=== PATIENT | female | born 1930 | race Caucasian/White ===

== ENCOUNTER → 2017-02-23 | Outpatient (CLI) | payer OTHER ==
[~2017-02-23] MED LIST: ACETYLCYST200 MG/1 M INH; AMLODIPINE BESYL5 MG PO; ASA5UEC PO; ASPIRIN325 PO; AUGMENTIN 875875 M1 PO; AVALIDE 300-121 EACH PO; B12INJ; BENICAR HCT 401 EACH PO; CALCIUM 500 +1 EAC5; CALCIUM 500 +1 EAC5 PO; COLACE 100 MG100 MG PO; COLACE100 MG PO; DUONEB 2.5-0.5 M3 ML IH; DUONEB 2.5-0.5 M3 ML INH; ENOXAPARIN30 MG/0.1 SUBQ; FIBERCON625 M1 PO; FISH OIL 1,0001 EAC5; FISH OIL 1,0001 EAC5 PO; FOSAMAX 70 MG T70 M1 PO; GLUCOSAMINE &1 EACH PO; HYDROCODON-ACET15 ML PO; IRBESARTAN150 MG PO; K-DUR 20 MEQ T20 MEQ PO; LASIX 20 MG TAB20 MG PO; LAXATIVE OF CHOICE; LEVAQUIN 500 M500 MG PO; LEVOTHYROXIN0.025 MG PO; LIDODERM 5%1 PATCH TP; LIPITOR10 MG PO; LORTAB 5 MG/5001 TA1 PO; LOSARTAN-HCTZ1 EAC2; MELATONIN1 MG PO; MUCINEX600 MG PO; OXYCODONE HCL5 M1 PO; PAIN & FEVER325 MG PO; PRAVACHOL40 MG PO; TOPROL XL50 MG PO; VITAMIN B-12100 MC1 PO; VITAMIN B-12500 MCG PO; VITAMIN D2000 UNIT PO; VITAMIN D400 UNI1 PO; ZOCOR 20 MG TAB20 M1 PO
--- NOTE | ~2017-02-23 | 2DMMODE ---
[facility] [place] [address] 2 D/M-MODE ECHOCARDIOGRAM Name: AMPAROGURUCHRISTOSRONIT MACIE Room #: [facility]#: [id number] Admission: 02/23/17 Attend Phys: Hunter Lee, Discharge: Date of : [birth year] Date of Service: 02/23/17 [facility] Report #: [id number] THIS REPORT FOR: //name// APPROVED REPORT Study performed: 02/23/2017 10:09:59 EXAM: Comprehensive 2D, Doppler, and color-flow Echocardiogram Patient Location: Out-Patient Blood Pressure: 130/86 mmHg HR: 63 bpm Other Information Study Quality: Adequate Indications Syncope CAD Hypertension/HDD 2D Dimensions RVDd: 30.59 mm LVEF(%): 66.60 (>50%) IVSd: 9.45 (7-11mm) LVOT Diam: 16.68 (18-24mm) LVDd: 39.93 mm PWd: 8.63 (7-11mm) Ascending Aorta: 26.92 mm LVDs: 25.43 (25-40mm) IVC: 14.00 mm Aortic Root: 27.25 mm Mcintyre's LVEF: 66.60 % Volumes Left Atrial Volume (Systole) Single Plane 4CH: 40.64 mL Single Plane 2CH: 31.58 mL LA ESV Index: 31.00 mL/m2 Aortic Valve AoV Peak Galen.: 1.79 m/s AO Peak Gr.: 12.77 mmHg LV Max P.60 mmHg LV Max: 1.07 m/s Mitral Valve E/A Ratio: 0.8 MV Decel. Time: 270.43 ms MV E Max Galen.: 0.89 m/s [facility] [address] [place] [address] 2 D/M-MODE ECHOCARDIOGRAM Name: RONIT GRAVES Room #: [facility]#: [id number] Admission: 02/23/17 Attend Phys: Hunter Lee, Discharge: Date of : [birth year] Date of Service: 02/23/17 1257 Report #: [id number] MV A Galen.: 1.14 m/s MV PHT: 78.42 ms Pulmonary Valve PV Peak Galen.: 0.80 m/s PV Peak Gr.: 2.56 mmHg Pulmonary Vein P Vein S: 55.7 m/s P Vein D: 50.6 m/s P Vein A Dur.: 27.9 m/s PVa Duration: 115 Tricuspid Valve TR Peak Galen.: 2.47 m/s RAP Estimate: 5.00 mmHg TR Peak Gr.: 24.40 mmHg Left Ventricle The left ventricle is normal size. There is normal LV segmental wall motion. There is normal left ventricular wall thickness. The left ventricular systolic function is normal. The left ventricular ejection fraction is within the normal range. LVEF is 60-65%. Grade I - abnormal relaxation pattern. Right Ventricle The right ventricle is normal size. The right ventricular systolic function is normal. Atria The left atrium size is normal. The right atrium size is normal. Aortic Valve Aortic valve is calcified, trileaflet. No aortic regurgitation is present. There is no aortic valvular stenosis. Mitral Valve Heavy mitral annular calcification, calcified posterior leaflet Mild mitral regurgitation. No evidence of mitral valve stenosis. Tricuspid Valve The tricuspid valve is normal in structure. There is mild tricuspid regurgitation. The right atrial pressure is estimated at 5 mmHg. There is no pulmonary hypertension. The estimated PAP was29 mmHg. Pulmonic Valve [facility] [address] [place] [address] 2 D/M-MODE ECHOCARDIOGRAM Name: RONIT GRAVES Room #: [facility] Nurys#: [id number] Admission: 02/23/17 Attend Phys: Hunter Lee, Discharge: Date of : [birth year] Date of Service: 02/23/17 1257 Report #: [id number] The pulmonary valve is normal in structure. There is no pulmonic valvular regurgitation. Great Vessels The aortic root is normal in size. IVC is normal in size and collapses >50% with inspiration. Pericardium There is no pericardial effusion. <Conclusion> The left ventricular systolic function is normal. There is normal LV segmental wall motion. LVEF 60-65%. Grade I diastolic dysfunction Aortic valve is calcified, trileaflet. No aortic regurgitation or stenosis present. Heavy mitral annular calcification, calcified posterior leaflet. Mild mitral regurgitation. Pulonary artery pressure could not be reliably ascertained. There is no pericardial effusion. <ELECTRONICALLY SIGNED> By: Abilio Perdomo MD, FACC 02/23/17 1257 1257 1257 Abilio Perdomo MD, FACC /INF
== END ==
LOC: CV 09:11
DX: R55 Syncope and collapse (principal); I25.10 Atherosclerotic heart disease of native coronary artery without angina pectoris; I10 Essential (primary) hypertension

== ENCOUNTER → 2017-03-27 | Outpatient (CLI) | payer OTHER | LOC: CAT 10:18 | DX: R91.1 Solitary pulmonary nodule (principal); J47.9 Bronchiectasis, uncomplicated; R05 Cough ==

== ENCOUNTER → 2017-07-04 | Outpatient (CLI) | payer OTHER | LOC: CAT 06-13 07:24 | DX: S12.100A Unspecified displaced fracture of second cervical vertebra, initial encounter for closed fracture (principal); M47.892 Other spondylosis, cervical region; M41.82 Other forms of scoliosis, cervical region; X58.XXXA Exposure to other specified factors, initial encounter; Y93.89 Activity, other specified; Y92.89 Other specified places as the place of occurrence of the external cause; Y99.8 Other external cause status ==

== ENCOUNTER 2017-11-30 15:23 | Inpatient (IN) | payer OTHER ==
[~2017-11-30] VITALS: Ht 149.9 cm; Wt 39.9 kg
--- NOTE | ~2017-11-30 | HC ---
[facility] [place] [address] CONSULTATION Name: RONIT GRAVES Room #: 435-P [facility] IN M.R.#: [id number] Admission: 11/30/17 Attend Phys: Cesar Muse MD Discharge: 12/06/17 Date of : [birth year] Report #: [id number] THIS REPORT FOR: //name// CC: Cesar Martinez MD DATE OF SERVICE: 11/30/2017 PULMONARY CONSULTATION REFERRING PROVIDER: Cesar Muse MD REASON FOR CONSULTATION: Influenza and hypoxemia. HISTORY OF PRESENT ILLNESS: Our group was asked to evaluate the patient in consultation while hospitalized in [facility]. She was admitted to [address] [place] [address]. We are seeing her there. The patient had been to Dr. Msue's office complaining of ongoing cough for several days, general malaise and fever, perhaps some diminished appetite. No nausea or vomiting. Normally sees Dr. Martinez in our group for bronchiectasis, but has not been seen since September. Subsequently was seen by Dr. Muse, looked poorly and an influenza swab was positive for influenza B. Subsequently, admitted for further management. Chest x-ray revealed no acute infiltrates. The patient has a cough productive of yellow sputum. No hemoptysis, no chest pains. She uses her Breo inhaler once daily and nebulized treatments roughly twice daily, has not increased use since symptoms began. ALLERGIES: None known. PAST MEDICAL HISTORY: 1. History of bronchiectasis. 2. Coronary artery disease. 3. Hyperlipidemia. 4. Hypertension. 5. Hypothyroidism. OUTPATIENT MEDICATIONS: Include acetaminophen, albuterol inhaler, Fosamax, aspirin, vitamin D3, vitamin B12, Colace, Avapro, Synthroid, melatonin, and pravastatin. SOCIAL HISTORY: The patient is an ex-smoker, quitting over almost 25 years ago. No significant alcohol consumption. Lives independently alone. FAMILY HISTORY: Noncontributory due to advanced age. [facility] [address] [place] [address] CONSULTATION Name: RONIT GRAVES Room #: 435-P [facility]#: [id number] Admission: 11/30/17 Attend Phys: Cesar Muse MD Discharge: 12/06/17 Date of : [birth year] Report #: [id number] REVIEW OF SYSTEMS: CONSTITUTIONAL: Fever as described. Denies any chills. ENT: No upper respiratory congestion, rhinorrhea or dysphagia. CARDIOVASCULAR: Known history of coronary artery disease requiring stent several years ago and carotid artery disease. GASTROINTESTINAL: No nausea, vomiting, diarrhea, constipation, or abdominal pain. GENITOURINARY: No dysuria, no frequency or hematuria. INTEGUMENT: Denies any rash. MUSCULOSKELETAL: No new joint pains or swellings, just generalized weakness. PHYSICAL EXAMINATION: VITAL SIGNS: Afebrile, pulse 80s, respiratory rate is 16, blood pressure 116/74. GENERAL: This is a pleasant elderly woman in no distress, obviously chilling and covered in blankets. ENT: Clear oropharynx. No thrush. NECK: Supple, no lymphadenopathy. LUNGS: Diminished, prolonged expiratory phase with expiratory rhonchi noted throughout. CARDIOVASCULAR: Heart was regular. I cannot appreciate any murmurs. BACK: Revealed some kyphosis. ABDOMEN: Soft, nontender, no masses. EXTREMITIES: Warm with 1+ edema. LABORATORY DATA: White blood cell count 8000, hemoglobin 12, hematocrit 35, platelet count 164. Sodium 136, potassium 4.2, chloride 98, bicarbonate 31, BUN 20, creatinine 0.8, glucose 92. Arterial blood gas on 3 liters revealed pH 7.45, pCO2 of 39, pO2 of 82, bicarbonate at 27. Chest x-ray without acute infiltrates showed some hyperinflation suggestive of obstructive lung disease. There are some bronchiectatic changes noted with tracking lines appreciated and some mild increased interstitial markings suggestive of interstitial infiltrates. IMPRESSION: 1. Influenza B infection. 2. Lower respiratory infection being concerned about a post or ongoing influenza secondary bacterial infection. 3. Bronchiectasis with acute exacerbation. SUGGESTIONS: 1. Bronchodilators. 2. Add IPV to assist with airway clearance. 3. Flutter valve. 4. Respiratory viral panel. 5. Sputum for routine cultures. [address] [address] CONSULTATION Name: RONIT GRAVES Room #: 435-P [facility] IN M.R.#: [id number] Admission: 11/30/17 Attend Phys: Cesar Muse MD Discharge: 12/06/17 Date of : [birth year] Report #: [id number] 6. Blood cultures. 7. Rocephin and azithromycin. 8. Tamiflu. 9. Oxygen protocol. 10. Additional recommendations to follow. Would also add IV fluids to her therapy. Thank you for requesting our suggestions. <ELECTRONICALLY SIGNED> By: Richie Cates MD 12/18/17 1535 1738 0246 Richie Cates MD /nt
--- NOTE | ~2017-11-30 | EKG ---
[address] [place] [address] ELECTROCARDIOGRAM REPORT Name: RONIT GRAVES Room #: 435-P [facility] IN M.R.#: [id number] Admission: 11/30/17 Attend Phys: Cesar Muse MD Discharge: Date of : [birth year] Report #: [id number] THIS REPORT FOR: //name// [facility] Test Date: 2017-11-30 Test Time: 17:35:09 Pat Name: RONIT GRAVES Department: Room: 435 P Gender: F [employer] Professor: Danni ALANIZ : 1930 Requested By: Cesar Muse Order Number: [id number] MD: Abilio Perdomo Measurements Intervals [place] Rate: 76 P: 53 [place]: 160 QRS: 25 QRSD: 86 T: 35 QT: 373 QTc: 420 Interpretive Statements Sinus rhythm Probable anteroseptal infarct, age indeterminate Baseline wander in lead(s) V4,V6 Compared to ECG 04/20/2016 12:33:44 No significant change was found Electronically Signed On 12-01-2017 9:02:54 [employer]M PROCESSING UTILITY WORKER by Abilio Perdomo [email or web address] <ELECTRONICALLY SIGNED> By: Abilio Perdomo MD, [facility] 12/01/17 0902 1735 1735 Abilio Perdomo MD, [facility] /EPI
--- NOTE | ~2017-11-30 | H ---
[facility] [place] [address] HISTORY AND PHYSICAL Name: CHRISTOS GRAVESOTHY MACIE Room #: 435-P [facility] IN M.R.#: [id number] Admission: 11/30/17 Attend Phys: Cesar Muse MD Discharge: 12/06/17 Date of : [birth year] Report #: [id number] THIS REPORT FOR: //name// CC: Cesar Muse CHIEF COMPLAINT: Fever, acute influenza B, chronic bronchiectasis, new acute respiratory failure. HISTORY OF PRESENT ILLNESS: The patient was brought to the office by her daughter with several days of progressive cough, generalized malaise and myalgias, and fever with decreased appetite. In the office, her temperature was 99.9. She was obviously short of breath. She was tachypneic with RR of 28. Her ordinarily coarse rhonchi, from bronchiectasis, were greatly increased. Air movement was diminished. Her office influenza B test was positive. Her oxygen saturation after walking to the exam room was very low at 72%, and oxygen was applied. Her cough was frequent and weak, and she was unable to bring up any sputum. She was having difficulty breathing and admission to the hospital was indicated for treatment of her acute influenza B, treatment of her acute respiratory failure, oseltamivir, intravenous fluids, and speciality pulmonary consultation. PAST MEDICAL HISTORY: Significant for decades of stable bronchiectasis with chronic sputum production and chronically noisy pulmonary exam. She is followed by Dr. Cates and Dr. Aquilino Martinez as an outpatient. She has COPD. 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 She has osteoporosis, current stable coronary artery disease treated with stents in the past, hyperlipidemia. She developed hyponatremia briefly when in the hospital in July 2016, she developed accelerated hypertension in response to her hospital stay for the neck fracture in 2015 that required irbesartan 300 mg, carvedilol 6.25 mg twice daily in addition to amlodipine to control. She has asymptomatic gallstones. She has an elevated beta-2 microglobulin level. CURRENT MEDICATIONS: Guaifenesin 1-1/2 tablets of 400 mg each twice daily at 9 and 9, vitamin D3 1000 units twice daily, irbesartan 150 mg (one half of a 300 mg tablet) twice daily, levothyroxine 0.025 mg at 7 in the morning daily, calcium carbonate 500 mg just in the morning, omega-3 krill oil 500 mg twice daily, aspirin 325 mg once daily, pravastatin 40 mg (one half of an 80 mg tablet) at 9 in the evening. She uses ipratropium/albuterol nebulizer 3 times a day on a regular basis. She no longer needs acetylcysteine added to her nebulizer treatments. Vitamin B12 500 mcg once in the morning, stool softener is taken on an as needed basis and melatonin 5 mg as needed for sleep. REVIEW OF SYSTEMS: Positive for fever, malaise, and myalgias. She has a cough [facility] [address] [place] [address] HISTORY AND PHYSICAL Name: RONIT GRAVES Room #: 435-P [facility] IN M..#: [id number] Admission: 11/30/17 Attend Phys: Cesar Muse MD Discharge: 12/06/17 Date of : [birth year] Report #: [id number] productive of yellow sputum. She has generalized weakness but no new joint pain or swelling. FAMILY HISTORY: Noncontributory and she has outlived her first degree relatives. SOCIAL HISTORY: She is and continues to live independently in her own home. She is an ex-smoker but quit almost 25 years ago. She does not drink alcohol. She requests a DNR and her daughter who was present at the time of examination agrees with this decision. PHYSICAL EXAMINATION: VITAL SIGNS: Her temperature is 99.4. Her respiratory rate is 28. Her blood pressure is 189/73, her pulse is 63. She is too unstable to stand on the scales for a weight. HEENT: Shows somewhat sunken face of dehydration. Her oropharynx is dry. LUNGS: She has loud coarse rhonchi throughout all lung briggs, increased over baseline, but there is also an impression of decreased total air movement. Her cough is persistent, weak, and ineffective at clearing her airway. CARDIOVASCULAR: S1 and S2 are normal and the rhythm is regular. ABDOMEN: Soft and nontender. EXTREMITIES: There is no significant edema in her ankles. NEUROLOGIC: Screening neurological examination is intact. Room air oxygen saturations were measured at 72%, 5 minutes later after resting at 82% and were then adequate when 2 liters of nasal oxygen was applied. Rapid influenza test is positive for influenza B. ASSESSMENT: 1. Acute influenza B infection. 2. Acute respiratory failure. 3. Chronic bronchiectasis. 4. Marked generalized weakness due to her illness. 5. Volume depletion/dehydration. 6. Chronic obstructive pulmonary disease. 7. Hypertensive response to this illness. 8. Chronic low body weight with a body mass index of 17.8, when measured on an office visit of 08/29/2017. 9. Chronic kidney disease with an estimated GFR of 58 on 04/27/2016. PLAN: On her presentation in the office, she is at significant risk of and other comorbidities from this acute influenza infection. Admission is indicated for oseltamivir, oxygen supplementation, aggressive pulmonary toilet, [facility] [address] [place] [address] HISTORY AND PHYSICAL Name: RONIT GRAVES Room #: 435-P [facility] IN ..#: [id number] Admission: 11/30/17 Attend Phys: Cesar Muse MD Discharge: 12/06/17 Date of : [birth year] Report #: [id number] intravenous fluids, and speciality boring inspector care and attention. A direct admission has been arranged for an acute medical/surgical telemetry bed and urgent Pulmonary Medicine consultation. <ELECTRONICALLY SIGNED> By: Cesar Muse MD 01/21/18 1055 1754 39 Cesar Muse MD /nt
--- NOTE | ~2017-11-30 | D ---
[facility] [place] [address] DISCHARGE SUMMARY Name: RONIT GRAVES Room #: 435-P [facility] IN M.R.#: [id number] Admission: 11/30/17 Attend Phys: Cesar Muse MD Discharge: 12/06/17 Date of : [birth year] Report #: [id number] THIS REPORT FOR: //name// CC: Cesar Muse DATE OF SERVICE: 12/06/2017 SUMMARY OF HISTORY AND PHYSICAL: The patient was brought to the office by her daughter with several days of cough, malaise, fever, myalgias. In the office, her temperature was 99.9, she was tachypneic with respiratory rate of 28, her oxygen saturation after walking from the waiting room to the exam room was very low at 72% and her influenza B test was positive. Her ordinarily coarse rhonchi from bronchiectasis were greatly increased. Hospitalization was indicated to treat her influenza B and acute respiratory failure. SUMMARY OF HOSPITAL COURSE: She was seen in pulmonary consultation by Dr. Cates and her medications were adjusted. IPV was added to increase her airway clearance, along with a flutter valve. Her albumin after rehydration dropped to 2.5, qualifying for severe malnutrition. Her respiratory viral panel in the hospital was positive for influenza B. On admission, she required oxygen. Close to discharge, her pH was 7.48, pCO2 of 37.2, and pO2 was low at 61.5 on room air. She did have choking spells with meals and on her own requested a mechanical soft ground diet and agreed to nectar thickened liquids. She had had difficulty with dysphagia in the past. She felt better after making this change. She developed thrush with a sore throat, which was treated. On the day of discharge, she felt better. She still had a nonproductive cough. There were loud rhonchi on exam with better air movement. Her heart tones were normal and there was trace edema to the ankles along with a negative abdominal examination. Chest x-ray showed a new left pleural effusion, left lower lobe infiltrate/atelectasis was superimposed on chronic interstitial fibrotic scarring. DISCHARGE DIAGNOSES: 1. Acute influenza B -- treated with oseltamivir. 2. Acute respiratory failure with an oxygen saturation of 72% and respiratory rate of 28 per minute documented in my office prior to admission, oxygen was applied and remained applied until she improved several days prior to discharge, and was no longer needed. 3. Severe malnutrition with an albumin of 2.4 after rehydration. 4. Dehydration. [address] [address] DISCHARGE SUMMARY Name: RONIT GRAVES Room #: 435-P [facility] IN [facility].#: [id number] Admission: 11/30/17 Attend Phys: Cesar Muse MD Discharge: 12/06/17 Date of : [birth year] Report #: [id number] 5. Pneumonia with left pleural effusions and bibasilar atelectasis/infiltrates on chest x-ray. 6. Chronic bronchiectasis. 7. Pulmonary fibrosis with chronic changes on chest x-ray. 8. Exacerbation of chronic obstructive pulmonary disease. 9. Dysphagia that was treated with mechanical soft chopped diet and nectar thickened liquids. 10. Hypertension. 11. Acute thrush. 12. Other medical problems as in the history and physical: Chronic kidney disease stage 3, hypothyroidism, on replacement; chronic nonunion type 2 odontoid fracture from 07/16/2016. 13. Chronic osteoporosis, stable; coronary artery disease treated with stents in the past, hyperlipidemia, asymptomatic gallstones, elevated beta 2 microglobulin. PLAN: She is returning home with home health and family are staying with her. She is to continue prednisone at 5 mg daily on a tapering dose, benzonatate capsules as needed for cough, cefuroxime 250 mg twice daily for her pulmonary infiltrates and fluconazole 150 mg daily for her thrush. <ELECTRONICALLY SIGNED> By: Cesar Muse MD 01/21/18 2223 1051 1145 Cesar Muse MD /nt
[2017-11-30 16:30] VITALS: BP 192/80
[2017-11-30 16:54] LABS: BE(vivo) 2.6 mmol/L (-2 to +3); HCO3 26.6 mmol/L (22.0-26.0); PCO2 39.2 mmHg (35.0-45.0); PO2 82.4 mmHg (80.0-100.0); sO2 96.6 % (92.0-98.0)
[2017-11-30 17:02] LABS: ABSOLUTE NEUTROPHILS 7.1 thou/uL (1.4-8.2); BASOPHILS 0.4 % (0.0-2.0); EOSINOPHILS 0.3 % (0.0-3.0); HEMATOCRIT 35.3 % (37.0-47.0); HEMOGLOBIN 11.8 gm/dL (12.0-15.0); LYMPHOCYTES 6.2 % (24.0-44.0); MCH 32.6 pg (26.0-34.0); MCHC 33.4 g/dL (28.0-37.0); MCV 97.7 fL (80.0-100.0); MONOCYTES 4.7 % (1.0-8.0); PLATELET COUNT 164 thou/uL (150-400); POLYS 88.4 % (36.0-66.0); RBC 3.61 mil/uL (4.20-5.00); RDW 13.8 % (10.5-14.5); WBC 8.1 thou/uL (4.0-11.0)
[2017-11-30 17:15] LABS: ALBUMIN 3.2 g/dL (3.4-5.0); CALCIUM 9.3 mg/dL (8.5-10.1); CREATININE 0.8 mg/dL (0.6-1.0); POTASSIUM 4.2 mmol/L (3.5-5.1); TOTAL BILIRUBIN 0.3 mg/dL (<0.1-1.0)
[2017-11-30 20:25] VITALS: BP 171/84
[2017-12-01 00:36] VITALS: BP 170/52
[2017-12-01 02:47] VITALS: BP 169/58
[2017-12-01 06:24] LABS: HEMATOCRIT 32.1 % (37.0-47.0); HEMOGLOBIN 10.8 gm/dL (12.0-15.0); MCH 32.8 pg (26.0-34.0); MCHC 33.6 g/dL (28.0-37.0); MCV 97.5 fL (80.0-100.0); RBC 3.3 mil/uL (4.20-5.00); RDW 14.1 % (10.5-14.5); WBC 6.1 thou/uL (4.0-11.0)
[2017-12-01 06:36] LABS: ALBUMIN 2.5 g/dL (3.4-5.0); CALCIUM 8.1 mg/dL (8.5-10.1); CREATININE 0.8 mg/dL (0.6-1.0); POTASSIUM 4.1 mmol/L (3.5-5.1); TOTAL BILIRUBIN 0.2 mg/dL (<0.1-1.0)
[2017-12-01 08:00] VITALS: BP 152/55
[2017-12-01 16:00] VITALS: BP 167/51
[2017-12-01 23:14] VITALS: BP 148/51
[2017-12-02 06:47] VITALS: BP 173/65
[2017-12-02 08:00] VITALS: BP 174/96
[2017-12-02 16:00] VITALS: BP 186/67
[2017-12-02 20:37] VITALS: BP 186/58
[2017-12-02 23:50] VITALS: BP 153/51
[2017-12-03 04:40] VITALS: BP 198/64
[2017-12-03 09:02] VITALS: BP 188/57
[2017-12-03 17:33] VITALS: BP 165/66
[2017-12-03 19:42] VITALS: BP 184/63
[2017-12-03 22:35] VITALS: BP 128/54
[2017-12-04 08:00] VITALS: BP 190/55
[2017-12-04 16:00] VITALS: BP 178/56
[2017-12-04 20:17] VITALS: BP 201/56
[2017-12-04 23:36] VITALS: BP 212/86
[2017-12-05 01:06] LABS: ADENOVIRUS Negative (Negative); INFLUENZA A Negative (Negative); INFLUENZA B Positive (Negative); METAPNEUMOVIRUS Negative (Negative); PARAINFLUENZA 1 Negative (Negative); PARAINFLUENZA 2 Negative (Negative); PARAINFLUENZA 3 Negative (Negative); RHINOVIRUS Negative (Negative); RSV A Negative (Negative); RSV B Negative (Negative)
[2017-12-05 01:30] VITALS: BP 108/40
[2017-12-05 04:57] VITALS: BP 103/53; BP 144/56
[2017-12-05 07:38] VITALS: BP 137/48
[2017-12-05 08:15] LABS: HEMATOCRIT 30.5 % (37.0-47.0); HEMOGLOBIN 10.1 gm/dL (12.0-15.0); MCH 32.4 pg (26.0-34.0); MCHC 33.3 g/dL (28.0-37.0); MCV 97.6 fL (80.0-100.0); RBC 3.13 mil/uL (4.20-5.00); RDW 14.1 % (10.5-14.5)
[2017-12-05 08:28] LABS: BE(vivo) 3.5 mmol/L (-2 to +3); HCO3 27.1 mmol/L (22.0-26.0); PCO2 37.2 mmHg (35.0-45.0); PO2 61.5 mmHg (80.0-100.0); sO2 93.2 % (92.0-98.0)
[2017-12-05 08:31] LABS: CALCIUM 8.3 mg/dL (8.5-10.1); CREATININE 0.7 mg/dL (0.6-1.0); POTASSIUM 3.9 mmol/L (3.5-5.1)
[2017-12-05 16:20] VITALS: BP 146/58
[2017-12-05 20:14] VITALS: BP 123/41
[2017-12-06 04:40] VITALS: BP 186/54
[2017-12-06 06:42] VITALS: BP 193/64
[2017-12-06 06:43] VITALS: BP 179/62
[2017-12-06 10:18] VITALS: BP 179/62
[2017-12-06 11:58] VITALS: BP 140/56
[2017-12-06] MEDS ORDERED: FLUCONAZOLE150 MG PO (14:44)
[2017-12-06] MEDS ORDERED: CEFUROXIME250 MG PO (14:51)
[2017-12-06] MEDS ORDERED: BENZONATATE100 MG PO (15:01)
[2017-12-06] MEDS ORDERED: PREDNISONE 5 MG5 MG PO (15:05)
[2017-12-06 15:17] VITALS: BP 114/40
== END 2017-12-06 16:37 | disposition home health service (06) | DRG 871 ==
LOC: 4S 15:23 → ENTRNSPT 12-06 16:10 → 4S 12-06 16:37
PROVIDERS: Internal Medicine; Internal Medicine Pulmonary Disease
DX: A41.9 Sepsis, unspecified organism (principal); J96.01 Acute respiratory failure with hypoxia; J10.00 Influenza due to other identified influenza virus with unspecified type of pneumonia; J44.1 Chronic obstructive pulmonary disease with (acute) exacerbation; J45.901 Unspecified asthma with (acute) exacerbation; J90 Pleural effusion, not elsewhere classified; R65.20 Severe sepsis without septic shock; I25.10 Atherosclerotic heart disease of native coronary artery without angina pectoris; E78.5 Hyperlipidemia, unspecified; E03.9 Hypothyroidism, unspecified; Z60.2 Problems related to living alone; N18.3 Chronic kidney disease, stage 3 (moderate); I12.9 Hypertensive chronic kidney disease with stage 1 through stage 4 chronic kidney disease, or unspecified chronic kidney disease; M81.0 Age-related osteoporosis without current pathological fracture; Z66 Do not resuscitate; E86.9 Volume depletion, unspecified; E86.0 Dehydration; J84.10 Pulmonary fibrosis, unspecified; R13.11 Dysphagia, oral phase; K59.00 Constipation, unspecified; B37.9 Candidiasis, unspecified; Z79.82 Long term (current) use of aspirin; Z87.891 Personal history of nicotine dependence; Z95.5 Presence of coronary angioplasty implant and graft; Z79.899 Other long term (current) drug therapy
CPT/HCPCS: 10102

== ENCOUNTER → 2018-02-08 | Outpatient (CLI) | payer OTHER ==
[~2018-02-08] MED LIST changes: +BENZONATATE100 MG PO; +CEFUROXIME250 MG PO; +FLUCONAZOLE150 MG PO; +PREDNISONE 5 MG5 MG PO
== END ==
LOC: RAD 09:10
DX: J84.89 Other specified interstitial pulmonary diseases (principal); J98.11 Atelectasis; J40 Bronchitis, not specified as acute or chronic; R91.1 Solitary pulmonary nodule

== ENCOUNTER → 2018-05-17 | Outpatient (CLI) | payer OTHER | LOC: RAD 16:00 | DX: J44.9 Chronic obstructive pulmonary disease, unspecified (principal); I10 Essential (primary) hypertension ==

== ENCOUNTER → 2018-11-15 | Outpatient (CLI) | payer OTHER | LOC: CAT 10:30 → SPEECH 10:30 → CAT 14:20 | DX: J47.9 Bronchiectasis, uncomplicated (principal); R13.10 Dysphagia, unspecified; K75.3 Granulomatous hepatitis, not elsewhere classified; J98.4 Other disorders of lung; R91.8 Other nonspecific abnormal finding of lung field; I70.0 Atherosclerosis of aorta; I25.10 Atherosclerotic heart disease of native coronary artery without angina pectoris; M47.815 Spondylosis without myelopathy or radiculopathy, thoracolumbar region; M51.35 Other intervertebral disc degeneration, thoracolumbar region; M41.85 Other forms of scoliosis, thoracolumbar region ==